=== PATIENT | female | born 1970 | race Caucasian/White ===

== ENCOUNTER 2021-12-18 06:01 | Emergency (ER) | payer OTHER, SELFPAY ==
[2021-12-18 06:47] LABS: Absolute Lymphocytes (CBC) 3.1 K/uL (0.7-4.9); Hematocrit 41.6 % (36.0-45.0); Lymphocytes % 40.2 % (15.3-44.8); MPV 7.8 fL (7.6-11.3); RBC Red Blood Cell Count 4.87 M/uL (3.86-4.86)
[2021-12-18] MEDS ORDERED: NA CHLORIDE 0.9% 1,000 ML ONE (06:49)
[2021-12-18] MEDS ORDERED: KETOROLAC 30 MG/ML INJ ONE (06:49)
[2021-12-18] MEDS ORDERED: METOCLOPRAMIDE 10 MG/2mL INJ ONE (06:49)
[2021-12-18] MEDS ORDERED: DIPHENHYDRAMINE 50 MG/ML VIAL ONE (06:49)
[2021-12-18 06:52] LABS: Protime INR 0.99
[2021-12-18 07:14] LABS: Urine Blood Negative (Negative); Urine Glucose Negative (Negative); Urine Protein Negative (Negative)
[2021-12-18 07:41] LABS: ALT/SGPT 38 U/L (12-78); AST/SGOT 26 U/L (15-37); Albumin 4.1 g/dL (3.4-5.0); Alkaline Phosphatase 110 U/L (45-117); BUN Blood Urea Nitrogen 17 mg/dL (7-18); Bicarbonate 24 mmol/L (21-32); Bilirubin Direct 0.1 mg/dL (0-0.2); Bilirubin Total 0.4 mg/dL (0.2-1.0); Glucose Level 111 mg/dL (74-106); Magnesium 2.2 mg/dL (1.8-2.4); NT PRO-BNP 32 pg/mL (<125); Potassium 4.2 mmol/L (3.5-5.1); Protein, Total 8.6 g/dL (6.4-8.2); Sodium Level 139 mmol/L (136-145); Troponin High Sensitivity 3.2 pg/mL (<58.9)
--- NOTE | 2021-12-18 07:51 | RAD REPORT ---
EXAM DESCRIPTION: RAD - Chest Single View - 12/18/2021 7:00 am CLINICAL HISTORY: COUGH COMPARISON: No comparisons FINDINGS: Lines: None. Lungs: Prominence of the pulmonary vasculature. Pleural: No significant pleural effusions or pneumothorax. Cardiac: The heart size is within normal limits. Bones: No acute fractures. Other: IMPRESSION: Vascular congestion without evidence of alveolar edema or consolidative airspace disease .
--- NOTE | 2021-12-18 08:39 | RAD REPORT ---
EXAM DESCRIPTION: CT - Head Brain Wo Cont - 12/18/2021 8:30 am CLINICAL HISTORY: HEADACHE COMPARISON: Head angio dated 12/18/2021 TECHNIQUE: All CT scans are performed using dose optimization technique as appropriate and may inclu de automated exposure control or mA/KV adjustment according to patient size. FINDINGS: No intracranial hemorrhage, hydrocephalus or extra-axial fluid collection.No areas of brai n edema or evidence of midline shift. The paranasal sinuses and mastoids are clear. The calvarium is intact. IMPRESSION: No acute intracranial abnormality.
--- NOTE | 2021-12-18 08:41 | RAD REPORT ---
EXAM DESCRIPTION: CT - Head angio - 12/18/2021 8:30 am CLINICAL HISTORY: HEADACHE COMPARISON: No comparisons TECHNIQUE: CT angiography of the head was performed with MIPs. All CT scans are performed using dose optimization technique as appropriate and may include automated exposure control or mA/KV adjustment according to patient size. FINDINGS: Anterior circulation: No aneurysm or large vessel occlusion. No hemodynamically significant stenosis. No arteriovenous malf ormation identified. Posterior circulation: No aneurysm or large vessel occlusion. No hemodynamically significant stenosis. No arteriovenous malf ormation identified. IMPRESSION: No significant flow abnormality is detected. No aneurysm.
--- NOTE | 2021-12-18 08:45 | EDPHYS ---
Physician Documentation [facility] Name: Sonny Rao Age: 51 yrs Sex: Female : 1970 Arrival Date: 12/18/2021 Time: 06:05 Bed 7 Private MD: TRAVIS Physician Mikey Phoenix HPI: 12/18 06:34 This 51 yrs old Female presents to ER via Ambulatory with complaints of drew Headache, Eye Problem. 06:34 The patient complains of pain to the forehead and right eye. The patient describes the drew headache as constant. Onset: The symptoms/episode began/occurred 2 day(s) ago. Associated signs and symptoms: Pertinent positives: nausea. Severity of symptoms: At its worst the pain was moderate, in the emergency department the pain is unchanged. Headache History: The patient has had previous headaches and this one is similar to previous episodes. The symptoms are alleviated by nothing. the symptoms are aggravated by nothing. The patient has experienced similar episodes in the past, several times. 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 - Social history:: Smoking status: Patient denies any tobacco usage or history of. - Family history:: not pertinent. ROS: 06:34 Constitutional: Negative for fever, chills, and weight loss, Eyes: Negative for injury, drew pain, redness, and discharge, ENT: Negative for injury, pain, and discharge, Neck: Negative for injury, pain, and swelling, Cardiovascular: Negative for chest pain, palpitations, and edema, Respiratory: Negative for shortness of breath, cough, wheezing, and pleuritic chest pain, Abdomen/GI: Negative for abdominal pain, nausea, vomiting, diarrhea, and constipation, Back: Negative for injury and pain, : Negative for injury, bleeding, discharge, and swelling, MS/Extremity: Negative for injury and deformity, Skin: Negative for injury, rash, and discoloration, Psych: Negative for depression, anxiety, suicide ideation, homicidal ideation, and hallucinations, Allergy/Immunology: Negative for hives, rash, and allergies, Endocrine: Negative for neck swelling, polydipsia, polyuria, polyphagia, and marked weight changes, Hematologic/Lymphatic: Negative for swollen nodes, abnormal bleeding, and unusual bruising. 06:34 Neuro: Positive for headache. Exam: 06:34 Constitutional: This is a well developed, well nourished patient who is awake, alert, drew and in no acute distress. Head/Face: Normocephalic, atraumatic. Eyes: Pupils equal round and reactive to light, extra-ocular motions intact. Lids and lashes normal. Conjunctiva and sclera are non-icteric and not injected. Cornea within normal limits. Periorbital areas with no swelling, redness, or edema. ENT: Nares patent. No nasal discharge, no septal abnormalities noted. Tympanic membranes are normal and external auditory canals are clear. Oropharynx with no redness, swelling, or masses, exudates, or evidence of obstruction, uvula midline. Mucous membranes moist. Neck: Trachea midline, no thyromegaly or masses palpated, and no cervical lymphadenopathy. Supple, full range of motion without nuchal rigidity, or vertebral point tenderness. No Meningismus. Chest/axilla: Normal chest wall appearance and motion. Nontender with no deformity. No lesions are appreciated. Cardiovascular: Regular rate and rhythm with a normal S1 and S2. No gallops, murmurs, or rubs. Normal PMI, no JVD. No pulse deficits. Respiratory: Lungs have equal breath sounds bilaterally, clear to auscultation and percussion. No rales, rhonchi or wheezes noted. No increased work of breathing, no retractions or nasal flaring. Abdomen/GI: Soft, non-tender, with normal bowel sounds. No distension or tympany. No guarding or rebound. No evidence of tenderness throughout. Back: No spinal tenderness. No costovertebral tenderness. Full range of motion. Female : Normal external genitalia. Skin: Warm, dry with normal turgor. Normal color with no rashes, no lesions, and no evidence of cellulitis. MS/ Extremity: Pulses equal, no cyanosis. Neurovascular intact. Full, normal range of motion. Neuro: Awake and alert, GCS 15, oriented to person, place, time, and situation. Cranial nerves II-XII grossly intact. Motor strength 5/5 in all extremities. Sensory grossly intact. Cerebellar exam normal. Normal gait. Psych: Awake, alert, with orientation to person, place and time. Behavior, mood, and affect are within normal limits. 06:34 Neuro: Orientation: is normal, appropriate for stated age, no acute changes, Mentation: is normal, appropriate for stated age, no acute changes, Memory: appropriate for stated age, no acute changes, Cranial nerves: is grossly normal based on the patient's age, no acute changes, Cerebellar function: is grossly normal, is grossly normal based on the patient's age, no acute changes, Motor: is normal, is grossly normal based on the patient's age, no acute changes, moves all fours, Sensation: no obvious gross deficits, no acute changes, Gait: is steady, appropriate for age, Deep tendon reflexes are 2+ (normal) in the bilateral brachioradialis, bicep, tricep and patellar and Achilles tendons, Babinski testing is normal, seizure activity, is not displayed by the patient. 07:40 ECG was reviewed by the Attending Physician. [facility] Vital Signs: 06:24 BP 151 / 91; Pulse 65; Resp 18; Temp 98.5(O); Pulse Ox 100% on R/A; Weight 99.79 kg; lp1 Height 5 ft. 6 in. (167.64 cm); Pain 10/10; 07:17 BP 103 / 77; Pulse 84; Resp 16; Pulse Ox 99% ; bp 07:56 BP 108 / 78; Pulse 74; Resp 16; Pulse Ox 99% ; bp 09:00 BP 112 / 85; Pulse 86; Resp 16; Pulse Ox 98% ; bp 06:24 Body Mass Index 35.51 (99.79 kg, 167.64 cm) lp1 Danny Coma Score: 06:38 Eye Response: spontaneous(4). Verbal Response: oriented(5). Motor Response: obeys [facility] commands(6). Total: 15. MDM: 06:21 Patient medically screened. [facility] 06:38 Differential diagnosis: cluster headache, cerebral vascular accident, epidural drew hematoma, neoplasm, sinusitis, subarachnoid bleed, temporal arteritis, tension headache, traumatic injuries. Data reviewed: vital signs, nurses notes, lab test result(s), EKG, radiologic studies, plain films. Data interpreted: potline monitor: rate is 65 beats/min, rhythm is regular, Pulse oximetry: on room air is 100 %. Test interpretation: by ED physician or midlevel provider: ECG, plain radiologic studies. Counseling: I had a detailed discussion with the patient and/or guardian regarding: the historical points, exam findings, and any diagnostic results supporting the discharge/admit diagnosis, lab results, radiology results, the need for outpatient follow up, for definitive care, a family practitioner, a neurologist. 12/18 06:34 Order name: Basic Metabolic Panel; Complete Time: 07:45 drew 12/18 06:34 Order name: CBC with Diff; Complete Time: 07:32 drew 12/18 06:34 Order name: LFT's; Complete Time: 07:45 drew 12/18 06:34 Order name: Magnesium; Complete Time: 07:45 drew 12/18 06:34 Order name: NT PRO-BNP; Complete Time: 07:45 drew 12/18 06:34 Order name: PT-INR; Complete Time: 07:32 drew 12/18 06:34 Order name: Troponin HS; Complete Time: 07:45 drew 12/18 06:34 Order name: XRAY Chest (1 view); Complete Time: 08:08 drew 12/18 06:34 Order name: CT Head Brain wo Cont 12/18 06:34 Order name: CT Head Angio drew 12/18 07:14 Order name: Urine Dipstick-Ancillary; Complete Time: 07:32 EDMS 04 06:34 Order name: EKG; Complete Time: 06:35 drew 12/18 06:34 Order name: Cardiac monitoring; Complete Time: 07:17 drew 12/18 06:34 Order name: EKG - Nurse/Tech; Complete Time: 07:17 drew 12/18 06:34 Order name: IV Saline Lock; Complete Time: 07:17 drew 12/18 06:34 Order name: Labs collected and sent; Complete Time: 06:41 drew 12/18 06:34 Order name: O2 Per Protocol; Complete Time: 06:41 drew 12/18 06:34 Order name: O2 Sat Monitoring; Complete Time: 06:41 drew 12/18 06:34 Order name: Urine Dipstick-Ancillary (obtain specimen); Complete Time: 07:17 drew 12/18 06:34 Order name: Urine Test (obtain specimen); Complete Time: 07:17 drew 12/18 06:52 Order name: Labs - recollect needed: chemistry needed; Complete Time: 07:57 mw2 EC:40 Rate is 57 beats/min. Rhythm is regular. QRS [place] is Normal. ME interval is normal. QRS drew interval is normal. QT interval is normal. No Q waves. T waves are Normal. No ST changes noted. Clinical impression: NSR w/ Non-specific ST/T Changes and No evidence of ischemia. Interpreted by me. Reviewed by me. Administered Medications: 07:10 Drug: NS 0.9% 1000 ml Route: IV; Rate: 1 bolus; Site: right antecubital; bp 09:20 Follow up: IV Status: Completed infusion; IV Intake: 1000ml bp 07:10 Drug: Ketorolac 30 mg Route: IVP; Site: right antecubital; bp 07:55 Follow up: Response: No adverse reaction bp 07:10 Drug: Benadryl (diphenhydrAMINE) 50 mg Route: IVP; Site: right antecubital; bp 07:55 Follow up: Response: Pain is decreased bp 07:10 Drug: Reglan (metoCLOPramide) 10 mg Route: IVP; Site: right antecubital; bp 07:55 Follow up: Response: Pain is decreased bp Disposition Summary: 12/18/21 08:44 Discharge Ordered Location: Home drew Problem: new drew Symptoms: have improved drew Condition: Stable drew Diagnosis - Headache drew Followup: drew - With: Private Physician - When: 2 - 3 days - Reason: Recheck today's complaints, Continuance of care, Re-evaluation by your physician Followup: drew - With: - When: 2 - 3 days - Reason: Recheck today's complaints, Re-evaluation by your physician Discharge Instructions: - Discharge Summary Sheet drew - General Headache Without Cause drew - General Headache Without Cause, [id number] drew Forms: - Medication Reconciliation Form drew - Thank You Letter drew - Antibiotic Education drew - Prescription Opioid Use drew - Work release form aa5 Prescriptions: - Zofran 4 mg Oral Tablet - take 1 tablet by ORAL route every 12 hours As needed; 20 tablet; Refills: 0, drew Product Selection Permitted - Tramadol 50 mg Oral Tablet - take 1 tablet by ORAL route every 6 hours as needed; 12 tablet; Refills: 0, drew Product Selection Permitted Signatures: Dispatcher [employer] Mikey Velazquez MD MD cha Pena, Laura RN RN lp1 Tani Stanton RN RN bp Sejal Montalvo 2
--- NOTE | 2021-12-18 08:45 | ER ---
Nurse's Notes [facility] Name: Sonny Rao Age: 51 yrs Sex: Female : 1970 Arrival Date: 12/18/2021 Time: 06:05 Bed 7 Private MD: Diagnosis: Headache Presentation: 12/18 06:24 Chief complaint: Patient states: Headache since 1 week ago, reports pressure behind lp1 right eye; Hx of similar symptoms but not as long lasting, reports seasonal allergy symptoms and head pressure, dry eyes. Coronavirus screen: At this time, the client does not indicate any symptoms associated with coronavirus-19. Ebola Screen: No symptoms or risks identified at this time. Initial Sepsis Screen: Does the patient meet any 2 criteria? No. Patient's initial sepsis screen is negative. Does the patient have a suspected source of infection? No. Patient's initial sepsis screen is negative. Risk Assessment: Do you want to hurt yourself or someone else? Patient reports no desire to harm self or others. Onset of symptoms was December 18, 2021. 06:24 Method Of Arrival: Ambulatory lp1 06:24 Acuity: MEHREEN 3 lp1 Triage Assessment: 06:55 Headache History: The patient has had previous headaches and this one is similar to as6 previous episodes. General: Appears in no apparent distress. uncomfortable. General: Behavior is calm, cooperative. Pain: Pain Pain began gradually, Also complains of photophobia. 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 - Social history:: Smoking status: Patient denies any tobacco usage or history of. - Family history:: not pertinent. Screenin:55 Abuse screen: Denies threats or abuse. Denies injuries from another. Nutritional as6 screening: No deficits noted. Tuberculosis screening: No symptoms or risk factors identified. Fall Risk None identified. Assessment: 06:54 General: Appears in no apparent distress. uncomfortable, Behavior is calm, cooperative. as6 Pain: Complains of pain in right eye and forehead. Neuro: Level of Consciousness is awake, alert, obeys commands, Oriented to person, place, time, situation, Reports headache in left frontal area. Cardiovascular: Capillary refill < 3 seconds Patient's skin is warm and dry. Respiratory: Airway is patent Trachea midline Respiratory effort is even, unlabored, Respiratory pattern is regular, symmetrical. 07:00 Reassessment: RECD REPORT FROM MARKY CASTRO. 51YO HF P/W DISLA AND BLURRY VISION. NO FOCAL bp NEURO DEFICITS. 07:45 Reassessment: PHLEBOTOMY CONTACTED FOR LAB DRAW. bp 09:19 Reassessment: PT D/C HOME AMBULATORY WITH FAMILY, DX WITH HEADACHE. bp Vital Signs: 06:24 BP 151 / 91; Pulse 65; Resp 18; Temp 98.5(O); Pulse Ox 100% on R/A; Weight 99.79 kg; lp1 Height 5 ft. 6 in. (167.64 cm); Pain 10/10; 07:17 BP 103 / 77; Pulse 84; Resp 16; Pulse Ox 99% ; bp 07:56 BP 108 / 78; Pulse 74; Resp 16; Pulse Ox 99% ; bp 09:00 BP 112 / 85; Pulse 86; Resp 16; Pulse Ox 98% ; bp 06:24 Body Mass Index 35.51 (99.79 kg, 167.64 cm) lp1 Danny Coma Score: 06:38 Eye Response: spontaneous(4). Verbal Response: oriented(5). Motor Response: obeys drew commands(6). Total: 15. ED Course: 06:05 Patient arrived in ED. ja2 06:12 Marky Griffin, RN is Primary Nurse. as6 06:21 Mikey Phoenix MD is Attending Physician. drew 06:25 Triage completed. lp1 06:25 Arm band placed on. lp1 06:41 Troponin HS Sent. as6 06:41 PT-INR Sent. as6 06:41 NT PRO-BNP Sent. as6 06:41 Magnesium Sent. as6 06:41 LFT's Sent. as6 06:41 CBC with Diff Sent. as6 06:42 Basic Metabolic Panel Sent. as6 06:56 Placed in gown. Bed in low position. Call light in reach. Side rails up X2. Adult w/ as6 patient. vehicle monitor technician on. Pulse ox on. NIBP on. Warm blanket given. 07:03 XRAY Chest (1 view) In Process Unspecified. EDMS 07:15 Primary Nurse role handed off by Marky Griffin, RN bp 07:15 Tani Stanton, RN is Primary Nurse. bp 08:32 CT Head Brain wo Cont In Process Unspecified. EDMS 08:32 CT Head Angio In Process Unspecified. EDMS 08:44 Omega Cotton MD is Referral Physician. drew 09:19 No provider procedures requiring assistance completed. IV discontinued, intact, bp bleeding controlled, No redness/swelling at site. Pressure dressing applied. Administered Medications: 07:10 Drug: NS 0.9% 1000 ml Route: IV; Rate: 1 bolus; Site: right antecubital; bp 09:20 Follow up: IV Status: Completed infusion; IV Intake: 1000ml bp 07:10 Drug: Ketorolac 30 mg Route: IVP; Site: right antecubital; bp 07:55 Follow up: Response: No adverse reaction bp 07:10 Drug: Benadryl (diphenhydrAMINE) 50 mg Route: IVP; Site: right antecubital; bp 07:55 Follow up: Response: Pain is decreased bp 07:10 Drug: Reglan (metoCLOPramide) 10 mg Route: IVP; Site: right antecubital; bp 07:55 Follow up: Response: Pain is decreased bp Intake: 09:20 IV: 1000ml; Total: 1000ml. bp Outcome: 08:44 Discharge ordered by . drew 09:19 Discharged to home ambulatory, with family. bp 09:19 Condition: stable 09:19 Discharge instructions given to patient, Instructed on discharge instructions, follow up and referral plans. medication usage, Demonstrated understanding of instructions, follow-up care, medications, Prescriptions given X 2. 09:20 Patient left the ED. bp Signatures: Dispatcher [employer] EDNJ Mikey Phoenix MD MD cha Pena, Laura, RN RN lp1 Tani Stanton, RN RN Alison Espinal2 Marky Griffin, GLORIA RN as6 Corrections: (The following items were deleted from the chart) 07:19 07:17 Pulse 84bpm; Resp 16bpm; Pulse Ox 99%; bp bp
[2021-12-18 20:06] VITALS: TEMP 98.5
[2021-12-18 20:11] VITALS: BP 112/85; O2SAT 98
== END 2021-12-18 09:20 | disposition home or self-care (01) ==
LOC: ER 06:01
DX: R51.9 Headache, unspecified (principal); R11.0 Nausea; E03.9 Hypothyroidism, unspecified; Z88.5 Allergy status to narcotic agent
CPT/HCPCS: 36415; 70450; 70496; 71045; 80048; 80076; 81003; 83735; 83880; 84484; 85025; 85610; 93005; J1200; J2765; J7030; Q9967

== ENCOUNTER 2022-05-20 03:06 | Emergency (ER) | payer SELFPAY ==
--- OUTSIDE RECORDS SUMMARY | 2022-05-20 03:09 | XMS REPORT | Continuity of Care Document ---
:1970 Author Organization [facility] t Address [address] [place] [address] Care Team Providers Name Role Phone LEA BEASLEY Primary Care Physician Unavailable Lea Beasley Attending Clinician Unavailable MESFIN YOUNG Attending Clinician Unavailable Mesfin Young MD Attending Clinician Avtar Hurst Attending Clinician Theron Attending Clinician Unavailable MESFIN YOUNG Admitting Clinician Unavailable Theron Admitting Clinician Unavailable Payers Payer Name Policy Type Policy Number Effective Date Expiration Date [facility] [id number] 2017 PPO/POS 00:00:00 Problems This patient has no known problems. Allergies, Adverse Reactions, Alerts Allergy Allergy Status Severity Reaction(s) Onset Inactive Treating Comm ents Source Name Type Date Date Clinician Codeine Propensi Active Nausea Univers ty to and/or 03-16 ity of adverse Vomiting 00:00: [place] reaction 00 Medical s Branch CODEINE DRUG Active N/V Univers INGREDI 03-16 ity of 00:00: [place] 00 Medical Branch Codeine Allergy Active Vomiting Chelsey castaneda to hetal [facility] Medical e Group Social History Social Habit Start Date Stop Date Quantity Comments Source Exposure to 2022-05-03 2022-05-13 Not sure [facility]-CoV-2 00:00:00 19:32:00 [place] [facility] (event) Branch Alcohol intake 2022-03-25 2022-03-25 Current [facility] 00:00:00 00:00:00 non-drinker of [facility] alcohol Branch (finding) Sex Assigned At [birth year] Universit y of 00:00:00 00:00:00 [facility] Smoking Status Start Date Stop Date Source Never smoked tobacco [facility] Medications Ordered Filled Start Stop Current Ordering Indication Dosage Frequency Signature Comments Components Source Medication Medication Date Date Medication? Clinician (SIG) Name Name LEVOTHYROXI Yes take 1 Univ ers NE 25 MCG 8-30 daily ity of ORAL TAB 18:21: [address] TRI-SPRINTE Yes take 1 Univ ers C (28) ORAL 8-30 daily ity of 18:21: [address] LORATADINE Yes take 1 Unive rs 10 MG ORAL 8-30 daily ity of TAB 18:: [address] MELOXICAM Yes take 1 Univer s 15 MG ORAL 8-30 daily ity of TAB 18:21: [address] amoxicillin amoxicillin No 1capsul Q8H amoxicilli [place] 500 mg 500 mg e(s) n 500 mg da capsule capsule capsule Medica l Take 1 Take 1 Take 1 Group capsule capsule capsule every 8 every 8 every 8 hours by hours by hours by oral route oral route oral route for 7 days. for 7 days. for 7 days. hydroxyzine hydroxyzine No hydroxyzin [place] HCl 50 mg HCl 50 mg e HCl 50 d a tablet TAKE tablet TAKE mg tablet Medical 1 TABLET BY 1 TABLET BY TAKE 1 Group MOUTH MOUTH TABLET BY NEEDED AT NEEDED AT MOUTH BEDTIME BEDTIME NEEDED AT BEDTIME Medrol Medrol No 1dose Medrol [place] (Matthieu) 4 mg (Matthieu) 4 mg pk(s) (Matthieu) 4 mg da tablets in tablets in tablets in Medical a dose pack a dose pack a dose Group Take 1 dose Take 1 dose pack Take pk by oral pk by oral 1 dose pk route for 7 route for 7 by oral days. days. route for 7 days. PERSONAL FITNESS TRAINER Thyroid PERSONAL FITNESS TRAINER Thyroid No PERSONAL FITNESS TRAINER Thyroid [place] 15 mg 15 mg 15 mg da tablet TAKE tablet TAKE tablet Medical 1 TABLET BY 1 TABLET BY TAKE 1 Group MOUTH ONCE MOUTH ONCE TABLET BY DAILY IN DAILY IN MOUTH ONCE THE MORNING THE MORNING DAILY IN ON AN EMPTY ON AN EMPTY THE STOMACH STOMACH MORNING ON 30-60 30-60 AN EMPTY MINUTES MINUTES STOMACH PRIOR TO PRIOR TO 30-60 FIRST MEAL FIRST MEAL MINUTES OF THE DAY OF THE DAY PRIOR TO FIRST MEAL OF THE DAY PERSONAL FITNESS TRAINER Thyroid PERSONAL FITNESS TRAINER Thyroid No PERSONAL FITNESS TRAINER Thyroid [place] 60 mg 60 mg 60 mg da tablet TAKE tablet TAKE tablet Medical 1 TABLET BY 1 TABLET BY TAKE 1 Group MOUTH ONCE MOUTH ONCE TABLET BY DAILY ON AN DAILY ON AN MOUTH ONCE EMPTY EMPTY DAILY ON STOMACH FOR STOMACH FOR AN EMPTY 90 DAYS 90 DAYS STOMACH FOR 90 DAYS Vital Signs Vital Name Observation Time Observation Value Comments Source Systolic blood 2022-05-14 01:21:04 125 mm[Hg] [facility] Diastolic blood 2022-05-14 01:21:04 93 mm[Hg] [facility] Heart rate 2022-05-14 01:21:04 74 /min [facility] Respiratory rate 2022-05-14 01:21:04 18 /min [facility] Oxygen saturation in 2022-05-14 01:21:04 98 /min [facility] Arterial blood by [facility] Pulse oximetry Branch Body temperature 2022-05-13 23:20:00 36.17 [place] [facility] Body weight 2022-05-13 23:20:00 76.658 kg [facility] BP Diastolic 2021-12-26 00:00:00 80 mm[Hg] [facility] Height 2021-12-26 00:00:00 66 [in_i] [facility] BMI (Body Mass 2021-12-26 00:00:00 29.9 kg/m2 [facility] nursing resident Medical Index) Group BP Systolic 2021-12-26 00:00:00 140 mm[Hg] [facility] Body Weight 2021-12-26 00:00:00 185.1 [lb_av] [facility] Procedures Procedure Date / Time Performed Performing Clinician Costa e CT ABDOMEN PELVIS WO 2022-05-14 00:38:00 Mesfin Young [facility] CONTRAST [facility] COMP. METABOLIC PANEL 2022-05-14 00:29:00 Mesfin Young [facility] ([id number]) [facility] CBC WITH DIFF 2022-05-14 00:29:00 Mesfin Young [facility] URINALYSIS 2022-05-14 00:29:00 Mesfin Young [facility] Encounters Start End Encounter Admission Attending Care Care Encounter Source Date/Time Date/Time Type Type Clinicians Facility Department ID 2022-05-14 Outpatient LAXMI Beasley STLMLC [id number] Common 08:22:01 Lea [facility] 2021-10-09 Outpatient LAXMI Beasley STLC [id number] Common 14:32:00 Lea [facility] 2021-10-09 Outpatient LAXMI Beasley STLC [id number] Common 14:31:08 Lea [facility] 2021-10-09 Outpatient LAXMI Beasley STLC [id number] Common 14:29:21 Lea [address] [facility] 2021-10-09 [facility] [id number] Common 13:23:00 [id number] [facility] 2022-05-13 2022-05-13 Emergency X [facility] ERT [id number] Univers 18:21:00 20:25:00 [facility] 2022-05-13 2022-05-13 Emergency [facility] [id number] Univers 18:21:00 20:25:00 Mesfin [id number] [id number] [place] [id number] Branch 2022-03-06 2022-03-06 Ambulatory nullFlavo MNA [id number] [facility] 19:00:00 19:00:00 Pre-Reg r Neurology 00 l Marie Brock 2022-03-06 2022-03-06 Outpatient KYLAH MONTERO [id number] [facility] 14:00:00 14:00:00 00 patrice Brock 2022-03-06 2022-03-06 Outpatient DYLAN Hurst [id number] 14:00:00 14:00:00 Avtar 00 Malik 2021-12-26 2021-12-26 Outpatient Hawkins_M MMG [facility] [id number] [place] 03:51:00 03:51:00 0417 Medical Group 2021-12-26 2021-12-26 [place] [id number] [place] 03:51:00 03:51:00 0414 da [facility] Group 2021-12-26 2021-12-26 [place] [id number] [facility] 03:51:00 03:51:00 0415 Medical Group 2021-12-26 2021-12-26 Albert [place] [facility] [place] - [id number] [facility] 00:00:00 00:00:00 MD: Janis Johnson [facility] [address], [facility], Otolaryngol [place] [facility] [address] , Ph. 2021-12-25 2021-12-25 [facility] [id number] [place] 02:26:00 02:26:00 0413 Medical Group 2021-12-17 2021-12-17 [facility] [id number] [place] 10:12:00 10:12:00 0405 Medical Group Results Test Description Test Time Test Comments Results Result Comments Source COMP. METABOLIC PANEL (91566) 2022-05-14 00:52:40 Test Item Value Reference Range Interpretation Comme nts NA (test code = 6204693883) 140 mmol/L 135-145 K (test code = 9526042674) 4.1 mmol/L 3.5-5 CL (test code = 2988459255) 101 mmol/L 98-108 CO2 TOTAL (test code = 30 mmol/L 23-31 4584630168) AGAP (test code = 3608624302) 2-16 BUN (test code = 9789098306) 10 mg/dL 7-23 GLUCOSE (test code = 4214936070) 99 mg/dL 70-110 CREATININE (test code = 0.50 mg/dL 0.5-1.04 0779664518) TOTAL BILI (test code = 0.7 mg/dL 0.1-1.4 6237467745) CALCIUM (test code = 5114562555) 10.3 mg/dL 8.6-10.6 T PROTEIN (test code = 8.1 g/dL 6.3-8.2 3363714487) ALBUMIN (test code = 2687134870) 5.0 g/dL 3.5-5 ALK PHOS (test code = 1155804546) 95 U/L 34-122 ALTv (test code = 1742-6) 24 U/L 5-35 AST(SGOT) (test code = 29 U/L 13-40 6302178883) eGFR (test code = 0451292652) mL/min/1.73m2 GABE (test code = GABE) Association of Glomerular Filtration Rate (GFR) and Staging of Kidney Disease* + +--------- + ----+| GFR (mL/min/1.73 m2) ?| With Kidney Damage ?| ?Without Kidney Damage+ +--- + +| ?>90 ?| ?Stage one ?| ? Normal ?+ +-------- + -----+| ?60-89 ?| ?Stage two ?| ? Decreased GFR ? + +--------- + ----+| ?30-59 ?| ?Stage three ?| ? Stage three ? + +--------- + ----+| ?15-29 ?| ?Stage four ? | ? Stage four ?+ +-------- + -----+| ?<15 (or dialysis) ? ?| ?Stage five ? | ? Stage five ?+ +-------- + -----+ *Each stage assumes the associated GFR level has been in effect for at least three months. ?Stages 1 to 5, with or without kidney disease, indicate chronic kidney disease. Notes: Determination of stages one and two (with eGFR >59mL/min/1.73 m2) requires estimation of kidney damage for at least three months as defined by structural or functional abnormalities of the kidney, manifested by either:Pathological abnormalities or Markers of kidney damage (including abnormalities in the composition of the blood or urine or abnormalities in imaging tests). [facility] WITH [id number] 00:40:36 Test Item Value Reference Range Interpretation Comments WBC (test code = See_Comment [Automated 6690-2) message] The sy stem which generated this result transmitted reference range : 4.30 - 11.10 10*3/?L. The reference range was not used to interpret this result as normal/abnormal . RBC (test code = See_Comment [Automated 789-8) message] The sy stem which generated this result transmitted reference range : 3.93 - 5.25 10*6/?L. The reference range was not used to interpret this result as normal/abnormal . HGB (test code = 14.5 g/dL 11.6-15 718-7) HCT (test code = 42.7 % 35.7-45.2 4544-3) MCV (test code = 87.7 fL 80.6-95.5 787-2) MCH (test code = 29.8 pg 25.9-32.8 785-6) MCHC (test code = 34.0 g/dL 31.6-35.1 786-4) RDW-SD (test code = 39.1 fL 39-49.9 20552-2) RDW-CV (test code = 12.1 % 12-15.5 788-0) PLT (test code = See_Comment [Automated 777-3) message] The sy stem which generated this result transmitted reference range : 166 - 358 10*3/ ?L. The reference r corrine was not used to interpret this result as normal/abnormal . MPV (test code = 9.1 fL 9.5-12.9 L 37030-3) NRBC/100 WBC (test See_Comment [Automat ed code = 8557170537) message] The system which generated this result transmitted reference range : 0.0 - 10.0 /100 WBCs. The refer ence range was not u sed to interpret th is result as normal/abnormal . NRBC x10^3 (test code See_Comment [Auto mated = 0822775032) message] The s ystem which generated this result transmitted reference range : 10*3/?L. The reference range was not used to interpret this result as normal/abnormal . GRAN MAT (NEUT) % 68.2 % (test code = 770-8) IMM GRAN % (test code 0.20 % = 9525800110) LYMPH % (test code = 25.4 % 736-9) MONO % (test code = 5.2 % 5905-5) EOS % (test code = 0.8 % 713-8) BASO % (test code = 0.2 % 706-2) GRAN MAT x10^3(ANC) 6.30 10*3/uL 1.88-7.09 (test code = 4176046565) IMM GRAN x10^3 (test 0-0.06 code = 0592054005) LYMPH x10^3 (test code 2.34 10*3/uL 1.32-3.29 = 731-0) MONO x10^3 (test code 0.48 10*3/uL 0.33-0.92 = 742-7) EOS x10^3 (test code = 0.07 10*3/uL 0.03-0.39 711-2) BASO x10^3 (test code 0.01-0.07 = 704-7) Lab Interpretation Abnormal (test code = 42937-8) [facility]"
[2022-05-20 05:48] LABS: Absolute Lymphocytes (CBC) 1.9 K/uL (0.7-4.9); Hematocrit 41.5 % (36.0-45.0); MCV 87.7 fL (80-100); MPV 7.3 fL (7.6-11.3); RBC Red Blood Cell Count 4.74 M/uL (3.86-4.86)
[2022-05-20] MEDS ORDERED: ONDANSETRON 4 MG/2 ML VIAL ONE (05:50)
[2022-05-20] MEDS ORDERED: FAMOTIDINE 20 MG/2 ML VIAL IV ONE (05:50)
[2022-05-20] MEDS ORDERED: FENTANYL CITR 100 MCG/2 ML ONE (05:50)
[2022-05-20 06:03] LABS: Urine Blood Negative (Negative); Urine Glucose Negative (Negative); Urine Protein Negative (Negative); Urine Specific Gravity <=1.005 (1.005-1.030)
--- NOTE | 2022-05-20 06:13 | RAD REPORT ---
EXAM DESCRIPTION: CT - Abdomen Pelvis W Contrast - 05/20/2022 6:00 am CLINICAL HISTORY: Abdominal pain, acute, nonlocalized COMPARISON: No comparisons TECHNIQUE: Biphasic, helical CT imaging of the abdomen and pelvis was performed following 100 ml non -ionic IV contrast. No oral contrast administered. All CT scans are performed using dose optimization technique as appropriate and may include automated exposure control or mA/KV adjustment according to patient size. FINDINGS: No suspicious findings in the lung bases. The liver, spleen, and pancreas show no suspicious findings. Gallbladder and biliary tree are also wi thout suspicious finding. Gallstones can be occult on CT imaging. Symmetric renal function is seen with no hydronephrosis or suspicious renal mass. No pyelonephritis o r acute parenchymal process. No bladder abnormalities. No adrenal abnormalities. No uterine or ovaria n suspicious finding. No dilated bowel loops or bowel wall thickening. Appendix is normal. No free air, free fluid or infla mmatory stranding. No hernia, mass or bulky lymphadenopathy. No suspicious bony findings. IMPRESSION: Contrast enhanced CT abdomen and pelvis showing no acute or emergent finding.
[2022-05-20 06:32] LABS: Protime INR 1.12
[2022-05-20 06:41] LABS: ALT/SGPT 24 U/L (12-78); AST/SGOT 16 U/L (15-37); Albumin 3.9 g/dL (3.4-5.0); Alkaline Phosphatase 86 U/L (45-117); BUN Blood Urea Nitrogen 15 mg/dL (7-18); Bicarbonate 27 mmol/L (21-32); Bilirubin Direct 0.2 mg/dL (0-0.2); Bilirubin Total 0.5 mg/dL (0.2-1.0); Glomerular Filtration Rate 109 ml/min (=/>90); Glucose Level 101 mg/dL (74-106); Lipase 194 U/L (73-393); Magnesium 2.4 mg/dL (1.8-2.4); NT PRO-BNP 10 pg/mL (<125); Potassium 3.8 mmol/L (3.5-5.1); Protein, Total 8.3 g/dL (6.4-8.2); Sodium Level 139 mmol/L (136-145)
[2022-05-20 06:56] LABS: Troponin High Sensitivity < 3.0 pg/mL (<58.9)
--- NOTE | 2022-05-20 07:28 | RAD REPORT ---
EXAM DESCRIPTION: US - Abdomen Exam Limited - 05/20/2022 7:23 am CLINICAL HISTORY: ABD PAIN COMPARISON: Abdomen Pelvis W Contrast dated 05/20/2022 FINDINGS: No gallstones, sludge or other abnormalities within the gallbladder lumen. There is no wal l thickening or pericholecystic fluid. No common duct stone or biliary tree dilatation identified. The exam was somewhat limited due to patient's pain level precluding optimal inspiration. IMPRESSION: No gallbladder or biliary tree abnormality identifiable.
--- NOTE | 2022-05-20 07:37 | EDPHYS ---
Physician Documentation [facility] Name: Sonny Rao Age: 52 yrs Sex: Female : 1970 Arrival Date: 05/20/2022 Time: 03:11 Bed 15 Private MD: TRAVIS Physician Mikey Phoenix HPI: 05/20 04:40 This 52 yrs old Female presents to ER via Ambulatory with complaints of Eye drew Problem, Abdominal Pain, Back Pain. 04:40 The patient is experiencing pain. Onset: The symptoms/episode began/occurred 3 week(s) drew ago. 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 - Social history:: Smoking status: Patient denies any tobacco usage or history of. ROS: 04:41 Constitutional: Negative for fever, chills, and weight loss, Eyes: Negative for injury, drew pain, redness, and discharge, ENT: Negative for injury, pain, and discharge, Neck: Negative for injury, pain, and swelling, Cardiovascular: Negative for chest pain, palpitations, and edema, Respiratory: Negative for shortness of breath, cough, wheezing, and pleuritic chest pain, Back: Negative for injury and pain, : Negative for injury, bleeding, discharge, and swelling, MS/Extremity: Negative for injury and deformity, Skin: Negative for injury, rash, and discoloration, Neuro: Negative for headache, weakness, numbness, tingling, and seizure, Psych: Negative for depression, anxiety, suicide ideation, homicidal ideation, and hallucinations, Allergy/Immunology: Negative for hives, rash, and allergies, Endocrine: Negative for neck swelling, polydipsia, polyuria, polyphagia, and marked weight changes, Hematologic/Lymphatic: Negative for swollen nodes, abnormal bleeding, and unusual bruising. 04:41 Abdomen/GI: Positive for abdominal pain, of the epigastric area, right upper quadrant and left upper quadrant. Exam: 04:41 Constitutional: This is a well developed, well nourished patient who is awake, alert, drew and in no acute distress. Head/Face: Normocephalic, atraumatic. Eyes: Pupils equal round and reactive to light, extra-ocular motions intact. Lids and lashes normal. Conjunctiva and sclera are non-icteric and not injected. Cornea within normal limits. Periorbital areas with no swelling, redness, or edema. ENT: Nares patent. No nasal discharge, no septal abnormalities noted. Tympanic membranes are normal and external auditory canals are clear. Oropharynx with no redness, swelling, or masses, exudates, or evidence of obstruction, uvula midline. Mucous membranes moist. Neck: Trachea midline, no thyromegaly or masses palpated, and no cervical lymphadenopathy. Supple, full range of motion without nuchal rigidity, or vertebral point tenderness. No Meningismus. Chest/axilla: Normal chest wall appearance and motion. Nontender with no deformity. No lesions are appreciated. Cardiovascular: Regular rate and rhythm with a normal S1 and S2. No gallops, murmurs, or rubs. Normal PMI, no JVD. No pulse deficits. Respiratory: Lungs have equal breath sounds bilaterally, clear to auscultation and percussion. No rales, rhonchi or wheezes noted. No increased work of breathing, no retractions or nasal flaring. Abdomen/GI: Soft, non-tender, with normal bowel sounds. No distension or tympany. No guarding or rebound. No evidence of tenderness throughout. Back: No spinal tenderness. No costovertebral tenderness. Full range of motion. Skin: Warm, dry with normal turgor. Normal color with no rashes, no lesions, and no evidence of cellulitis. MS/ Extremity: Pulses equal, no cyanosis. Neurovascular intact. Full, normal range of motion. Neuro: Awake and alert, GCS 15, oriented to person, place, time, and situation. Cranial nerves II-XII grossly intact. Motor strength 5/5 in all extremities. Sensory grossly intact. Cerebellar exam normal. Normal gait. 04:41 Abdomen/GI: Inspection: abdomen appears normal, Bowel sounds: normal, Palpation: mild abdominal tenderness, in the epigastric area, right upper quadrant and left upper quadrant, Liver: no appreciated palpable abnormalities, Hernia: not appreciated. 05:41 ECG was reviewed by the Attending Physician. [facility] 07:35 Musculoskeletal/extremity: DVT Exam: No signs of deep vein thrombosis. no pain, no drew swelling, no tenderness, negative Homans' sign noted on exam, no appreciated bluish discoloration, no erythema, no increased warmth. Vital Signs: 03:18 BP 133 / 77; Pulse 59; Resp 18; Temp 98.1; Pulse Ox 100% on R/A; Weight 76.66 kg; tw5 Height 5 ft. 6 in. (167.64 cm); Pain 3/10; 04:30 BP 111 / 73; Pulse 53; Resp 15; Pulse Ox 97% on R/A; jb4 06:30 BP 104 / 77; Pulse 60; Resp 16; Pulse Ox 97% on R/A; jb4 07:15 BP 121 / 102; Pulse 63; Resp 18; Pulse Ox 100% on R/A; em6 08:00 BP 112 / 82; Pulse 61; Resp 18; Pulse Ox 98% ; em6 03:18 Body Mass Index 27.28 (76.66 kg, 167.64 cm) tw5 03:18 pain is worse after eating at 7/10 or laying down tw5 MDM: 03:13 Patient medically screened. drew 04:42 Data reviewed: vital signs, nurses notes, lab test result(s), EKG, radiologic studies, [facility] CT scan, plain films, ultrasound. Data interpreted: desk monitor: rate is 59 beats/min, rhythm is regular, Pulse oximetry: on room air is 100 %. Counseling: I had a detailed discussion with the patient and/or guardian regarding: the historical points, exam findings, and any diagnostic results supporting the discharge/admit diagnosis, lab results, radiology results. 05/20 04:31 Order name: Basic Metabolic Panel; Complete Time: 07:33 [facility] 05/20 04:31 Order name: CBC with Diff; Complete Time: 06:26 [facility] 05/20 04:31 Order name: LFT's; Complete Time: 07:33 [facility] 05/20 04:31 Order name: Magnesium; Complete Time: 07:33 [facility] 05/20 04:31 Order name: NT PRO-BNP; Complete Time: 07:33 [facility] 05/20 04:31 Order name: PT-INR; Complete Time: 07:33 [facility] 05/20 04:31 Order name: Troponin HS; Complete Time: 07:33 [facility] 05/20 04:31 Order name: XRAY Chest (1 view) [facility] 05/20 04:31 Order name: Lipase; Complete Time: 07:33 [facility] 05/20 04:31 Order name: US Abdomen Limited; Complete Time: 07:33 [facility] 05/20 04:31 Order name: CT Abd/Pelvis - IV Contrast Only; Complete Time: 06:26 [facility] 05/20 04:33 Order name: Urine Culture [facility] 05/20 06:03 Order name: Urine Dipstick-Ancillary; Complete Time: 06:26 EDMS 05/20 06:09 Order name: CREATININE WHOLE BLOOD; Complete Time: 06:26 EDND 05/20 04:31 Order name: EKG; Complete Time: 04:32 [facility] 05/20 04:31 Order name: Cardiac monitoring; Complete Time: 05:30 [facility] 05/20 04:31 Order name: EKG - Nurse/Tech; Complete Time: 05:30 [facility] 05/20 04:31 Order name: IV Saline Lock; Complete Time: 05:33 [facility] 05/20 04:31 Order name: Labs collected and sent; Complete Time: 05:33 [facility] 05/20 04:31 Order name: O2 Per Protocol; Complete Time: 05:30 [facility] 05/20 04:31 Order name: O2 Sat Monitoring; Complete Time: 05:30 [facility] 05/20 04:33 Order name: Urine Dipstick-Ancillary (obtain specimen); Complete Time: 05:58 [facility] 05/20 04:33 Order name: Urine Test (obtain specimen); Complete Time: 05:58 drew EC:41 Rate is 62 beats/min. Rhythm is regular. QRS Wiggins is Normal. RI interval is normal. QRS drew interval is normal. QT interval is normal. No Q waves. T waves are Normal. Clinical impression: NSR w/ Non-specific ST/T Changes and No evidence of ischemia. Interpreted by me. Reviewed by me. Administered Medications: 06:20 Not Given (Patient Refused): Pepcid (famotidine) 20 mg IVP once; dilute with 10 mL 0.9% jb4 NaCl; give over 2 minutes 06:20 Drug: fentaNYL (PF) 25 mcg Route: IVP; Site: left antecubital; jb4 07:15 Follow up: Response: No adverse reaction; RASS: Alert and Calm (0) em6 06:20 Drug: Zofran (Ondansetron) 4 mg Route: IVP; Site: left antecubital; jb4 07:20 Follow up: Response: No adverse reaction em6 08:34 Not Given (Physician Discretion): fentaNYL (PF) 25 mcg IVP once em6 Disposition Summary: 05/20/22 07:36 Discharge Ordered Location: Home drew Problem: an ongoing problem drew Symptoms: have improved drew Condition: Stable drew Diagnosis - Epigastric abdominal tenderness drew - Functional dyspepsia drew - Abdominal tenderness drew Followup: drew - With: Private Physician - When: 2 - 3 days - Reason: Recheck today's complaints, Continuance of care, Re-evaluation by your physician Followup: drew - With: - When: 2 - 3 days - Reason: Recheck today's complaints, Continuance of care, Re-evaluation by your physician Followup: drew - With: - When: 2 - 3 days - Reason: Recheck today's complaints, Re-evaluation by your physician Discharge Instructions: - Discharge Summary Sheet drew - Abdominal Pain, Adult drew - Indigestion drew - Abdominal Pain, Adult, [id number] [facility] Forms: - Medication Reconciliation Form drew - Thank You Letter drew - Antibiotic Education [facility] - Prescription Opioid Use [facility] Prescriptions: - Pepcid 20 mg Oral Tablet - take 1 tablet by ORAL route every 12 hours for 30 days; 60 tablet; Refills: 0, [facility] Product Selection Permitted - Zofran 4 mg Oral Tablet - take 1 tablet by ORAL route every 12 hours As needed; 20 tablet; Refills: 0, [facility] Product Selection Permitted - dicyclomine 20 mg Oral Tablet - take 1 tablet by ORAL route 4 times per day; 58 tablet; Refills: 0, Product [facility] Selection Permitted Signatures: Dispatcher [employer] Mikey Velazquez MD MD cha Bryson, James, RN RN jb4 Suzie Allred tw5 Selene Ross, RN RN em6
--- NOTE | 2022-05-20 07:37 | ER ---
Nurse's Notes [facility] Name: Sonny Rao Age: 52 yrs Sex: Female : 1970 Arrival Date: 05/20/2022 Time: 03:11 Bed 15 Private MD: Diagnosis: Epigastric abdominal tenderness;Functional dyspepsia;Abdominal tenderness Presentation: 05/20 03:18 Chief complaint: Patient states: "I have been pain under my ribs especially after I tw5 eat. I am concerned that it is an ulcer, I have an history of IBS. I have dry eyes so I am not sure what I can take that won't dry my eyes out even more.". Coronavirus screen: Vaccine status: Patient reports receiving the 2nd dose of the covid vaccine. [email or web address]. Ebola Screen: Patient negative for fever greater than or equal to 101.5 degrees Fahrenheit, and additional compatible Ebola Virus Disease symptoms Patient denies exposure to infectious person. Patient denies travel to an Ebola-affected area in the 21 days before illness onset. Initial Sepsis Screen: Does the patient meet any 2 criteria? No. Patient's initial sepsis screen is negative. Does the patient have a suspected source of infection? No. Patient's initial sepsis screen is negative. Risk Assessment: Do you want to hurt yourself or someone else? Patient reports no desire to harm self or others. Onset of symptoms is unknown. 03:18 Method Of Arrival: Ambulatory tw5 03:18 Acuity: MEHREEN 3 tw5 Triage Assessment: 03:20 General: Appears in no apparent distress. Behavior is calm, cooperative, appropriate tw5 for age. Pain: Pain currently is 3 out of 10 on a pain scale. at worst was 7 out of 10 on a pain scale. GI: Reports upper abdominal pain. 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 - Social history:: Smoking status: Patient denies any tobacco usage or history of. Screenin:15 Abuse screen: Denies threats or abuse. Nutritional screening: No deficits noted. em6 Tuberculosis screening: No symptoms or risk factors identified. Fall Risk IV access (20 points). Total Solomon Fall Scale indicates No Risk (0-24 pts). Assessment: 03:40 Reassessment: see triage note. jb4 05:00 Reassessment: Patient appears in no apparent distress at this time. Patient and/or jb4 family updated on plan of care and expected duration. Pain level reassessed. Patient is alert, oriented x 3, equal unlabored respirations, skin warm/dry/pink. 06:00 Reassessment: Patient appears in no apparent distress at this time. Patient and/or jb4 family updated on plan of care and expected duration. Pain level reassessed. Patient is alert, oriented x 3, equal unlabored respirations, skin warm/dry/pink. 07:15 General: Appears in no apparent distress. comfortable, Behavior is calm, cooperative, em6 appropriate for age. Pain: Complains of pain in abdomen Pain currently is 2 out of 10 on a pain scale. Neuro: Davis Agitation-Sedation Scale (RASS): 0 - Alert and Calm Level of Consciousness is awake, alert, obeys commands, Oriented to person, place, time, situation. Cardiovascular: Heart tones present Capillary refill < 3 seconds Patient's skin is warm and dry. Respiratory: Airway is patent Respiratory effort is even, unlabored, Respiratory pattern is regular, symmetrical, Breath sounds are clear bilaterally. GI: Abdomen is non-distended, Bowel sounds present X 4 quads. Abd is soft and non tender X 4 quads. : No signs and/or symptoms were reported regarding the genitourinary system. EENT: No signs and/or symptoms were reported regarding the EENT system. Derm: No signs and/or symptoms reported regarding the dermatologic system. Musculoskeletal: Circulation, motion, and sensation intact. Range of motion: intact in all extremities. 08:15 Reassessment: Patient appears in no apparent distress at this time. Patient and/or em6 family updated on plan of care and expected duration. Pain level reassessed. Patient is alert, oriented x 3, equal unlabored respirations, skin warm/dry/pink. Vital Signs: 03:18 BP 133 / 77; Pulse 59; Resp 18; Temp 98.1; Pulse Ox 100% on R/A; Weight 76.66 kg; tw5 Height 5 ft. 6 in. (167.64 cm); Pain 3/10; 04:30 BP 111 / 73; Pulse 53; Resp 15; Pulse Ox 97% on R/A; jb4 06:30 BP 104 / 77; Pulse 60; Resp 16; Pulse Ox 97% on R/A; jb4 07:15 BP 121 / 102; Pulse 63; Resp 18; Pulse Ox 100% on R/A; em6 08:00 BP 112 / 82; Pulse 61; Resp 18; Pulse Ox 98% ; em6 03:18 Body Mass Index 27.28 (76.66 kg, 167.64 cm) tw5 03:18 pain is worse after eating at 7/10 or laying down tw5 ED Course: 03:11 Patient arrived in ED. ja2 03:13 Mikey Phoenix MD is Attending Physician. drew 03:20 Triage completed. tw5 03:20 Arm band placed on left wrist. tw5 03:39 Rolf Dasilva, RN is Primary Nurse. jb4 05:05 XRAY Chest (1 view) In Process Unspecified. EDMS 05:05 US Abdomen Limited In Process Unspecified. EDMS 05:05 CT Abd/Pelvis - IV Contrast Only In Process Unspecified. EDMS 05:30 Inserted saline lock: 20 gauge in left antecubital area, using aseptic technique. Blood as6 collected. 05:33 Lipase Sent. lg3 05:33 Basic Metabolic Panel Sent. lg3 05:33 CBC with Diff Sent. lg3 05:33 LFT's Sent. lg3 05:33 Magnesium Sent. lg3 05:33 NT PRO-BNP Sent. lg3 05:33 PT-INR Sent. lg3 05:33 Troponin HS Sent. lg3 05:41 Client placed on continuous cardiac and pulse oximetry monitoring. NIBP monitoring wm applied. radiation monitor on. Pulse ox on. 05:41 EKG done, by ED staff, reviewed by Mikey Phoenix MD. wm 06:02 Urine Culture Sent. tw5 07:15 Patient has correct armband on for positive identification. Bed in low position. Call em6 light in reach. Side rails up X 1. 07:36 Reid Beasley MD is Referral Physician. drew 07:36 Yasmin Heller MD is Referral Physician. drew 08:36 No provider procedures requiring assistance completed. IV discontinued, intact, em6 bleeding controlled, No redness/swelling at site. Pressure dressing applied. Administered Medications: 06:20 Not Given (Patient Refused): Pepcid (famotidine) 20 mg IVP once; dilute with 10 mL 0.9% jb4 NaCl; give over 2 minutes 06:20 Drug: fentaNYL (PF) 25 mcg Route: IVP; Site: left antecubital; jb4 07:15 Follow up: Response: No adverse reaction; RASS: Alert and Calm (0) em6 06:20 Drug: Zofran (Ondansetron) 4 mg Route: IVP; Site: left antecubital; jb4 07:20 Follow up: Response: No adverse reaction em6 08:34 Not Given (Physician Discretion): fentaNYL (PF) 25 mcg IVP once em6 Medication: 08:36 VIS not applicable for this client. em6 Outcome: 07:36 Discharge ordered by . drew 08:36 Discharged to home ambulatory, with significant other. em6 08:36 Condition: stable 08:36 Discharge instructions given to patient, significant other, Instructed on discharge instructions, follow up and referral plans. medication usage, Demonstrated understanding of instructions, follow-up care, medications, Prescriptions given X 3. 08:37 Patient left the ED. em6 Signatures: Dispatcher [employer] EDMS Mikey Phoenix MD MD cha Bryson, James RN RN jb4 Amy Gallego RN RN sera3 Ayla Del Castillo Jessica ja2 Wood, Tiffany tw5 Slawson, Ashby, RN RN as6 Selene Ross RN RN em6
[2022-05-20 09:57] VITALS: TEMP 98.1
[2022-05-20 10:09] VITALS: BP 112/82; O2SAT 98
--- NOTE | 2022-05-20 14:30 | EKG ---
Test Date: 2022-05-20 Test Time: 05:37:44 [employer] Supervisor: MEASUREMENT RESULTS: Intervals: Rate: 62 DC: 160 QRSD: 92 QT: 408 QTc: 414 [place]: P: 54 DC: 160 QRS: -14 T: 44 INTERPRETIVE STATEMENTS: Normal sinus rhythm Incomplete right bundle branch block Borderline ECG Compared to ECG 12/18/2021 07:08:48 Incomplete right bundle-branch block now present Sinus bradycardia no longer present Electronically Signed On 05-20-22 14:29:01 CDT by Eric Hanley
--- NOTE | 2022-05-20 15:00 | RAD REPORT ---
EXAM DESCRIPTION: RAD - Chest Single View - 05/20/2022 5:03 am CLINICAL HISTORY: The patient is 52 years old and is Female; Chest pain TECHNIQUE: Single view of the chest. COMPARISON: No relevant prior studies available. FINDINGS: Lungs: No pulmonary vascular congestion or consolidation. Pleural space: Unremarkable. No pneumothorax. Heart: Unremarkable. No cardiomegaly. Mediastinum: Unremarkable. Bones/joints: No acute fracture visualized. Upper abdomen: No free air in the visualized upper abdomen. IMPRESSION: No acute cardiopulmonary process identified. Electronically signed by: Gail Johnston MD 05/20/2022 5:27 AM CDT Due to temporary technical issues with the PACS/Fluency reporting system, reports are being signed by the in house radiologists without review as a courtesy to insure prompt reporting. The interpreting radiologist is fully responsible for the content of the report.
== END 2022-05-20 08:37 | disposition home or self-care (01) ==
LOC: ER 03:06
DX: K30 Functional dyspepsia (principal); R10.819 Abdominal tenderness, unspecified site; E03.9 Hypothyroidism, unspecified; Z88.5 Allergy status to narcotic agent
CPT/HCPCS: 36415; 71045; 74177; 76705; 80048; 80076; 81003; 82565; 83690; 83735; 83880; 84484; 85025; 85610; 87086; 87088; 93005; 96374; 96375; 99285; J2405; J3010; Q9967